=== PATIENT | male | born 1990 | race American Indian/Alaskan Native ===

== ENCOUNTER 2017-06-12 16:08 | Emergency (ER) | payer OTHER, BC ==
[2017-06-12 16:25] VITALS: BP 130/75
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
== END 2017-06-12 18:07 | disposition home or self-care (01) ==
LOC: ED 16:08
DX: M25.561 Pain in right knee (principal); R51 Headache; K13.79 Other lesions of oral mucosa; J45.909 Unspecified asthma, uncomplicated; F17.200 Nicotine dependence, unspecified, uncomplicated; V89.2XXA Person injured in unspecified motor-vehicle accident, traffic, initial encounter; Y93.89 Activity, other specified; Y99.8 Other external cause status; Y92.410 Unspecified street and highway as the place of occurrence of the external cause
CPT/HCPCS: 99283

== ENCOUNTER 2017-08-06 13:06 | Emergency (ER) | payer BC, OTHER ==
[2017-08-06 13:39] VITALS: BP 128/80
--- NOTE | 2017-08-06 16:34 | Emergency Department Report ---
ED Rash HPI - HPI Chief Complaint: Skin Rash Stated Complaint: SKIN RASH Time Seen by Provider: 08/06/17 16:12 Duration: 2 months Location: Lower Extremities Suspected Cause: Other (patient states he has a itchy rash mostly in the groin and on his hips are present for approximately 2 months. Patient believes it may be fungal has been ) Rash Symptoms: Yes Itching, No Facial Swelling, No Tongue/Oral Swelling, No Breathing Difficulties, No Choking Sensation, No Wheezing/Dyspnea, No Peeling, No Blistering, No Fever ED Review of Systems ROS: Stated complaint: SKIN RASH Other details as noted in HPI Comment: All other systems reviewed and negative ED Past Medical Hx - Past Medical History Hx Hypertension: No Hx Asthma: Yes - Social History Smoking Status: Current Every Day Smoker Substance Use Type: Alcohol - Medications Home Medications: Home Medications Medication Instructions Recorded Confirmed Last Taken Type Methocarbamol [Robaxin-750] 750 mg PO BID PRN 7 Days #15 tablet 06/12/17 Unknown Rx Rash Exam - Exam General: Vital signs noted. No distress. Alert and acting appropriately. HEENT: No Periorbital Edema, No Conjuctival Injection, No Chemosis, No Perioral Edema, No Tongue Edema, No Uvular Edema, No Compromised Airway, No Drooling Lungs: Yes Good Air Exchange (Normal Breath Sounds), No Wheezes, No Ronchi, No Stridor, No Cough, No Labored Respirations, No Retractions, No Use of Accessory Muscles, No Other Abnormal Lung Sounds Heart: Yes Regular, No Murmur Skin: Yes Maculopapular Rash Other: Positive: Abdomen Normal, Neurologic Normal, Musculoskeletal Normal ED Course Vital Signs 08/06/17 13:37 Temperature 98.6 F Pulse Rate 76 Respiratory 18 Rate Blood Pressure 128/80 O2 Sat by Pulse 100 Oximetry ED Medical Decision Making - Medical Decision Making Patient to continue the fungal cream is been taking will also be able to add Selsun Blue Critical care attestation.: If time is entered above; I have spent that time in minutes in the direct care of this critically ill patient, excluding procedure time. ED Disposition Clinical Impression: Tinea versicolor Disposition: DC-01 TO HOME OR SELFCARE Is pt being admited?: No Does the pt Need Aspirin: No Condition: Stable Additional Instructions: Also try to use Selsun Blue dandruff shampoo to clean your body over the next several weeks and this should also improve the rash Referrals: PRIMARY CARE, [Primary Care Provider] - 3-5 Days
== END 2017-08-06 16:46 | disposition home or self-care (01) ==
LOC: ED 13:06
DX: B36.0 Pityriasis versicolor (principal); F17.200 Nicotine dependence, unspecified, uncomplicated
CPT/HCPCS: 99282

== ENCOUNTER 2019-02-13 11:10 | Emergency (ER) | payer BC, OTHER ==
[2019-02-13 11:29] VITALS: BP 129/82
--- NOTE | 2019-02-13 11:34 | Emergency Department Report ---
Blank Doc - Documentation Documentation: 28 y/o male took 5 hydrotryptophan last pm and repots extreme drowsiness, dizz iness, nausea and headache This initial assessment/diagnostic orders/clinical plan/treatment(s) is/are subject to change based on patient's health status, clinical progression and re- assessment by fellow clinical providers in the ED. Further treatment and workup at subsequent clinical providers discretion. Patient/guardians urged not to elope from the ED as their condition may be serious if not clinically assessed and managed. Initial orders include: Labs and urine hai posion control
[2019-02-13 12:39] LABS: Basophils # (Auto) 0.1 K/mm3 (0.0-0.1); Basophils % (Auto) 0.5 % (0.0-1.8); Eosinophils # (Auto) 0.2 K/mm3 (0.0-0.4); Eosinophils % (Auto) 2.2 % (0.0-4.3); Hematocrit 49.2 % (35.5-45.6); Hemoglobin 16.8 gm/dl (11.8-15.2); Lymphocytes # (Auto) 1.5 K/mm3 (1.2-5.4); Lymphocytes % (Auto) 15.7 % (13.4-35.0); Mean Corpuscular HGB Conc 34 % (32-34); Mean Corpuscular Volume 89 fl (84-94); Monocytes # (Auto) 0.3 K/mm3 (0.0-0.8); Monocytes % (Auto) 3.5 % (0.0-7.3); Red Blood Count 5.51 M/mm3 (3.65-5.03); Red Cell Distribution Width 15.2 % (13.2-15.2)
[2019-02-13 12:49] LABS: Platelet Count 193 K/mm3 (140-440)
[2019-02-13 12:54] LABS: Alanine Aminotransferase 49 units/L (7-56); Albumin 4.6 g/dL (3.9-5); BUN/Creatinine Ratio 9; Blood Urea Nitrogen 8 mg/dL (9-20); Calcium 8.9 mg/dL (8.4-10.2); Hemolysis Index 27
[2019-02-13 13:10] LABS: Bilirubin,Urine Negative (Negative); Blood,Urine Negative (Negative); Color,Urine Yellow (Yellow); Urobilinogen,Urine < 2.0 mg/dL (<2.0)
[2019-02-13 13:17] LABS: Mucus,Urine FEW /HPF
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
[2019-02-13 14:26] LABS: Amphetamine Screen,Urine PRESUMPTIVE NEGATIVE; Benzodiazepines Screen,Urine PRESUMPTIVE NEGATIVE; Cannabinoid Screen,Urine PRESUMPTIVE NEGATIVE; Cocaine Screen,Urine PRESUMPTIVE NEGATIVE; Methadone Screen,Urine PRESUMPTIVE NEGATIVE; Opiate Screen,Urine PRESUMPTIVE NEGATIVE
== END 2019-02-13 14:50 | disposition left against medical advice (07) ==
LOC: ED 11:10
DX: R10.9 Unspecified abdominal pain (principal); R11.2 Nausea with vomiting, unspecified; R51 Headache
CPT/HCPCS: 36415; 80053; 80307; 80320; 81001; 83690; 85025; 87086; G0480